=== PATIENT | male | born 1960 | race Caucasian/White ===

== ENCOUNTER 2016-12-25 11:00 | Observation (INO) | payer MEDICARE, MEDICAID ==
[~2016-12-25] VITALS: Ht 182.9 cm; Wt 108.9 kg
[2016-12-25] MEDS ORDERED: SODIUM CHLORIDE FLUSH 10ML SYR IVF ONE (11:30)
[2016-12-25] MEDS ORDERED: PLEASE ENTER HEIGHT AND WEIGHT MC SCH (11:30)
[2016-12-25] MEDS ORDERED: PLEASE ENTER ALLERGIES MC SCH ×2 (11:30)
[2016-12-25 11:51] LABS: BLOOD UREA NITROGEN 17 mg/dL (7-18)
[2016-12-25 11:55] LABS: IS PT STATUS REG ER OR PRE ER? YES
[2016-12-25] MEDS ORDERED: HYDROcodone/APAP 5/325 TABLET PO PRN (13:00)
[2016-12-25] MEDS ORDERED: LABETALOL 5MG/ML, 20ML IVPush PRN (13:00)
[2016-12-25] MEDS ORDERED: ONDANSETRON 2MG/ML, 2ML IVPush PRN (13:00)
[2016-12-25] MEDS ORDERED: ONDANSETRON ODT 4 MG PO PRN (13:00)
[2016-12-25 13:05] VITALS: BP 129/76
[2016-12-25] MEDS ORDERED: ENOXAPARIN 40 MG/0.4 ML SQ SCH (16:00)
[2016-12-25 18:50] VITALS: BP 113/76
[2016-12-25] MEDS ORDERED: LISI-167 PO (19:56)
[2016-12-25] MEDS ORDERED: CALC625T9 PO (19:56)
[2016-12-25] MEDS ORDERED: FLUT15.88 NS (19:56)
[2016-12-25] MEDS ORDERED: QUET50TA PO (19:56)
[2016-12-25] MEDS ORDERED: DIVA500T2 PO (19:56)
[2016-12-25] MEDS ORDERED: LORA1TAB PO (19:56)
[2016-12-25] MEDS: VALPROIC ACID 250 MG CAPSULE PO SCH (22:03)
[2016-12-25] MEDS: QUETIAPINE 25MG TABLET PO SCH (22:03)
[2016-12-25] MEDS: LORazepam 1MG TABLET PO SCH (22:03)
[2016-12-25 23:51] LABS: IS PT STATUS REG ER OR PRE ER? NO
[2016-12-26 01:44] VITALS: BP 129/74
[2016-12-26 05:17] LABS: ASPARTATE AMINO TRANSFERASE 37 U/L (15-37); BLOOD UREA NITROGEN 22 mg/dL (7-18)
[2016-12-26 05:19] LABS: IS PT STATUS REG ER OR PRE ER? NO
[2016-12-26] MEDS ORDERED: ASPIRIN 81 MG TABLET EC PO SCH (06:00)
[2016-12-26 07:25] VITALS: BP 120/73
[2016-12-26] MEDS: VALPROIC ACID 250 MG CAPSULE PO SCH (08:14)
[2016-12-26] MEDS ORDERED: FLUTICASONE NASAL SPRAY 16GM NAS SCH (09:00)
[2016-12-26] MEDS ORDERED: LISINOPRIL 10 MG TABLET PO SCH (09:00)
[2016-12-26] MEDS ORDERED: REGADENOSON 0.4 MG/5 ML SYRINGE ONE (09:47)
[2016-12-26 12:43] VITALS: BP 134/84
[2016-12-26] MEDS: LORazepam 1MG TABLET PO SCH (13:33)
[2016-12-26] MEDS: QUETIAPINE 25MG TABLET PO SCH (13:33)
[2016-12-26] MEDS ORDERED: ASPI-621 PO (15:44)
== END 2016-12-26 16:48 | disposition home or self-care (01) ==
LOC: ED 12:12 → EDIP 12:13 → INTOOBSV 12:13 → ED 12:34 → 5SO 13:06
DX: R07.89 Other chest pain (principal); I10 Essential (primary) hypertension; F32.9 Major depressive disorder, single episode, unspecified; F63.81 Intermittent explosive disorder; F79 Unspecified intellectual disabilities; D69.6 Thrombocytopenia, unspecified
CPT/HCPCS: 36415; 71010; 78452; 80048; 80053; 80061; 82040; 83735; 84439; 84443; 84484; 85025; 85610; 85730; 93005; 93017; 93306; 96372; 99285; A9502; C9898; G0378; J1650; J2785

== ENCOUNTER 2017-10-25 15:52 | Emergency (ER) | payer MEDICARE, MEDICAID ==
[~2017-10-25] VITALS: Ht 185.4 cm; Wt 118.3 kg
[~2017-10-25 15:52] MED LIST: ASPI-621 PO; CALC625T9 PO; DIVA500T2 PO; FLUT15.88 NS; LISI-167 PO; LORA1TAB PO; QUET50TA PO
[2017-10-25 15:53] VITALS: BP 163/96
[2017-10-25] MEDS ORDERED: IBUPROFEN 200 MG TABLET ONE (16:18)
[2017-10-25] MEDS ORDERED: IBUPROFEN 200 MG TABLET PO ONE (16:30)
[2017-10-25] MEDS ORDERED: DIPH,PERTUSS(ACELL),TET VAC/PF 0.5 ML IM-VACC ONE ×2 (16:30→16:33)
[2017-10-25] MEDS ORDERED: SIMV20TA3 PO (16:32)
== END 2017-10-25 18:26 | disposition home or self-care (01) ==
LOC: ED 18:00
DX: S92.422A Displaced fracture of distal phalanx of left great toe, initial encounter for closed fracture (principal); W19.XXXA Unspecified fall, initial encounter; Y93.89 Activity, other specified; Y92.009 Unspecified place in unspecified non-institutional (private) residence as the place of occurrence of the external cause; Y99.8 Other external cause status
CPT/HCPCS: 90471; 90715